=== PATIENT | male | born 1970 | race Hispanic/Latino ===

== ENCOUNTER 2021-02-23 17:32 | Outpatient (CLI) | payer OTHER ==
[2021-02-24 01:32] LABS: SARS-CoV-2 PCR by NAA Not Detected (NotDetected)
== END 2021-02-23 17:33 | disposition home or self-care (01) ==
LOC: CSHLAB 17:32
PROVIDERS: ATTEND Internal Medicine Gastroenterology
DX: Z20.822 Contact with and (suspected) exposure to COVID-19 (principal); R10.9 Unspecified abdominal pain; K63.5 Polyp of colon
CPT/HCPCS: 87635; U0003; U0005

== ENCOUNTER 2021-02-26 08:58 | Day surgery (SDC) | payer OTHER ==
[2021-02-25 11:58] VITALS: BMI 36.0
[2021-02-26] MEDS ORDERED: Lidocaine 1% MPF 2 ML VIAL ONE (09:37)
[2021-02-26] MEDS ORDERED: PROPOFOL 40 ML ONE (11:44)
[2021-02-26] MEDS ORDERED: PROPOFOL 20 ML ONE (11:45)
== END 2021-02-26 13:18 | disposition home or self-care (01) ==
LOC: CSHSDC 08:58
PROVIDERS: ATTEND Internal Medicine Gastroenterology
DX: K29.50 Unspecified chronic gastritis without bleeding (principal); B96.81 Helicobacter pylori [H. pylori] as the cause of diseases classified elsewhere; K63.5 Polyp of colon; K64.9 Unspecified hemorrhoids
CPT/HCPCS: 88305; 88312; J2704